=== PATIENT | male | born 1990 | race Caucasian/White ===

== ENCOUNTER 2016-07-13 12:27 | Emergency (ER) | payer OTHER ==
[~2016-07-13] VITALS: Ht 175.3 cm; Wt 86.2 kg
[2016-07-13 12:57] VITALS: BP_SYST 124
== END 2016-07-13 14:33 | disposition left against medical advice (07) ==
LOC: SED 12:27
DX: R51 Headache (principal); Z53.21 Procedure and treatment not carried out due to patient leaving prior to being seen by health care provider